=== PATIENT | male | born 1955 | race Caucasian/White ===

== ENCOUNTER 2018-01-17 16:29 | Emergency (ER) | payer OTHER ==
[~2018-01-17] VITALS: Ht 180.3 cm; Wt 93.9 kg
[2018-01-17 16:32] VITALS: Ht 180.3 cm; Wt 93.9 kg
[2018-01-17 19:22] VITALS: BP 141/72
== END 2018-01-17 19:51 | disposition home or self-care (01) ==
LOC: ED 16:29
DX: S49.92XA Unspecified injury of left shoulder and upper arm, initial encounter (principal); S16.1XXA Strain of muscle, fascia and tendon at neck level, initial encounter; S80.12XA Contusion of left lower leg, initial encounter; S80.812A Abrasion, left lower leg, initial encounter; V13.4XXA Pedal cycle driver injured in collision with car, pick-up truck or van in traffic accident, initial encounter; Y93.55 Activity, bike riding; Y92.410 Unspecified street and highway as the place of occurrence of the external cause
CPT/HCPCS: J2001